=== PATIENT | male | born 1990 | race Caucasian/White ===

== ENCOUNTER → 2021-12-15 | Day surgery (SDC) | payer OTHER ==
[~2021-12-15] MED LIST: AMLODIPINE BESY10 MG PO; BENICAR40 MG PO; HYDROCHLOROTHIA25 MG PO; MELATONIN5 M5 PO
== END | disposition home or self-care (01) ==
LOC: OR 07:19
DX: K22.2 Esophageal obstruction (principal); K21.00 Gastro-esophageal reflux disease with esophagitis, without bleeding; I10 Essential (primary) hypertension; F17.290 Nicotine dependence, other tobacco product, uncomplicated; E66.01 Morbid (severe) obesity due to excess calories; Z68.42 Body mass index [BMI] 45.0-49.9, adult; Z79.899 Other long term (current) drug therapy; Z20.822 Contact with and (suspected) exposure to COVID-19
CPT/HCPCS: J2704; J7040